=== PATIENT | female | born 1995 | race American Indian/Alaskan Native ===

== ENCOUNTER 2017-01-18 00:27 | Outpatient (CLI) | payer MEDICAID ==
[2017-01-18] MEDS ORDERED: LACTATED RINGERS 500 ML IV ONE (01:19)
[2017-01-18 01:28] LABS: Bilirubin,Urine NEG (Negative); Blood,Urine NEG (Negative); Ketones,Urine NEG (Negative); Leukocyte Esterase,Urine NEG (Negative); Mucus,Urine FEW /HPF; Nitrite,Urine NEG (Negative); Protein,Urine <15 mg/dL mg/dL (Negative); Urobilinogen,Urine < 2.0 mg/dL (<2.0); WBC,Urine < 1.0 /HPF (0.0-6.0)
[2017-01-18 03:37] VITALS: BP 94/53
--- NOTE | 2017-01-18 07:29 | Ultrasound Report ---
BIOPHYSICAL PROFILE (TWINS): INDICATION: No movements per patient. COMPARISON: None similar. TECHNIQUE: Transabdominal ultrasound with Doppler interrogation. BABY A: 2 - breathing movements 2 - movements 2 - posture and tone 2 - Qualitative amniotic fluid volume 8 - TOTAL SCORE OF POSSIBLE 8 Heart Rate (bpm) 148 BABY B: 2 - breathing movements 2 - movements 2 - posture and tone 2 - Qualitative amniotic fluid volume 8 - TOTAL SCORE OF POSSIBLE 8 Heart Rate (bpm) 159
--- NOTE | 2017-01-18 15:34 | Ultrasound Report ---
OB ULTRASOUND GREATER THAN 14 WEEKS - TWINS INDICATION: Decreased movement. Twin gestation. COMPARISON: None similar. TECHNIQUE: Transabdominal grayscale ultrasound with Doppler interrogation. BABY A: Gestation: Twin A Position: Breech Amniotic Fluid: Twin - Largest vertical pocket 5 cm (2-8 cm Normal) Placenta: Posterior fundal Placental Grade: 0 Heart Rate: 144 BPM Cervical length: 4.8 cm (Normal > 3 cm) NEUROANATOMY VISUALIZED: Choroid Plexus Cisterna Magnum Cerebellum Lateral Ventricle ANATOMY VISUALIZED: Stomach Kidneys Bladder Diaphragm 4 Chamber Heart; a 2.3 mm intracardiac echogenic focus noted in possibly the left ventricle, image 10. Heart 3 Vessel Cord Abd. Cord Insert SPINE VISUALIZED: Limited spine due to position The following are not demonstrated due to maternal body habitus or lie: Spine. BPD: 6.28 cm = 25 w 3 d HC: 23.67 cm = 25 w 5 d AC: 21.28 cm = w 25 6 d FL: 4.67 cm = 25 w 4 d HC/AC Ratio: 1.11 Cephalic Index: 78.7 Estimated Weight: 839 grams LMP: 07/18/2016 Clinical age = 26 w 2 d EDC: 04/24/2017 US Gest. Age = 25 w 5 d EDC: 04/28/2017 BABY B: Gestation: Twin B Position: Transverse - head to maternal right Amniotic Fluid: Twin - Largest vertical pocket 3.3 cm (2-8 cm Normal) Placenta: Anterior fundal Placental Grade: 0 Heart Rate: 159 BPM Cervical length: 4.8 cm (Normal > 3 cm) NEUROANATOMY VISUALIZED: Choroid Plexus Cisterna Magnum Cerebellum Lateral Ventricle ANATOMY VISUALIZED: Stomach Kidneys Bladder Diaphragm 4 Chamber Heart Heart 3 Vessel Cord SPINE VISUALIZED: Limited spine due to position The following are not demonstrated due to maternal body habitus or lie: Abd. Cord Insert, spine BPD: 6.07 cm = 24 w 5 d HC: 22.53 cm = 24 w 4 d AC: 22.18 cm = 26 w 4 d FL: 4.66 cm = 25 w 4 d HC/AC Ratio: 1.02 Cephalic Index: 78.2 Estimated Weight: 867 grams LMP: 07/18/2016 Clinical age = 26 w 2 d EDC: 04/24/2017 US Gest. Age = 25 w 5 d EDC: 04/28/2017 CONCLUSION: Twin, viable intrauterine gestations with details, as above. An echogenic intracardiac focus noted in twin A , as described. Please correlate clinically and follow up on subsequent exams, as warranted. Thank you for the opportunity to participate in this patient's care.
== END 2017-01-18 03:50 | disposition home or self-care (01) ==
LOC: TRG 00:27
PROVIDERS: ATTEND Obstetrics & Gynecology
DX: O36.8120 Decreased fetal movements, second trimester, not applicable or unspecified (principal); O30.002 Twin pregnancy, unspecified number of placenta and unspecified number of amniotic sacs, second trimester; O32.1XX1 Maternal care for breech presentation, fetus 1; O32.2XX2 Maternal care for transverse and oblique lie, fetus 2; Z3A.25 25 weeks gestation of pregnancy
CPT/HCPCS: 76805; 76810; 76819; 81001

== ENCOUNTER 2017-03-07 02:08 | Outpatient (CLI) | payer MEDICAID ==
[2017-03-07] MEDS ORDERED: LACTATED RINGERS 500 ML IV ONE (02:17)
[2017-03-07 02:36] VITALS: BP 105/52
[2017-03-07] MEDS ORDERED: LACTATED RINGERS 1,000 ML ONE ×2 (02:42→04:53)
[2017-03-07 03:56] LABS: Urine Drugs of Abuse Note Disclamer
[2017-03-07 04:35] LABS: Bilirubin,Urine NEG (Negative); Blood,Urine NEG (Negative); Ketones,Urine NEG (Negative); Leukocyte Esterase,Urine SM (Negative); Mucus,Urine FEW /HPF; Nitrite,Urine NEG (Negative); Protein,Urine <15 mg/dL mg/dL (Negative)
[2017-03-07] MEDS ORDERED: BRETHINE IVP PRN (05:18)
[2017-03-07] MEDS ORDERED: REGLAN IV ONE (05:18)
[2017-03-07] MEDS ORDERED: BRETHINE SUB-Q PRN (05:18)
[2017-03-07] MEDS ORDERED: XYLOCAINE 2% INFILTRATI ONE (05:18)
[2017-03-07] MEDS ORDERED: PEPCID IV ONE (05:18)
[2017-03-07] MEDS ORDERED: BICITRA PO ONE (05:18)
[2017-03-07] MEDS ORDERED: MINERAL OIL PO PRN (05:18)
[2017-03-07] MEDS ORDERED: ePHEDrine SULFATE IV PRN (05:18)
--- NOTE | 2017-03-07 05:27 | History and Physical Report ---
History of Present Illness Date of examination: 03/07/17 (pt arrived to Triage via EMS c/o ctx with twin gestation) Chief complaint: "I took castor oil all day and did nipple stim. I want these babies out." History of present illness: Medical hx: asthma Surgical HX: 2 TAB Denies smoking, drinking, drug use Pt gives hx of being in [facility] 3 weeks ago Where she received steriods and was told both babies were breech EDC 04-24-17 Term babies with no complications Past History - Obstetrical History Expected Date of Delivery: 04/24/17 Actual Gestation: 33 Week(s) 1 Day(s) : 6 Para: 3 Hx # Term Pregnancies: 3 Induced : 2 Number of Living Children: 3 Medications and Allergies Allergies Allergy/AdvReac Type Severity Reaction Status Date / Time No Known Allergies Allergy Unverified 10/17/15 17:06 Home Medications Medication Instructions Recorded Confirmed Last Taken Type Clindamycin [Clindamycin CAP] 300 mg PO Q8H #30 cap 10/17/15 Unknown Rx Ibuprofen [Motrin 600 MG tab] 600 mg PO Q8H PRN #60 tablet 10/17/15 Unknown Rx traMADol [Ultram 50 MG tab] 50 mg PO Q6HR PRN #14 tablet 10/17/15 Unknown Rx Active Meds: Active Medications Citric Acid/Sodium Citrate (Bicitra) 30 ml PO ONCE ONE Stop: 03/07/17 05:19 Ephedrine Sulfate (Ephedrine Sulfate) 10 mg IV Q2M PRN PRN Reason: Hypotension Stop: 03/07/17 05:23 Famotidine (Pepcid) 20 mg IV ONCE ONE Stop: 03/07/17 05:19 Cefazolin Sodium 2 gm/ Sodium (Chloride) 100 mls @ 200 mls/hr IV ONCE ONE PRN Reason: Protocol Stop: 03/07/17 05:47 Lactated Ringer's (Lactated Ringers) 1,000 mls @ 125 mls/hr IV DIRECT [place] Lactated Ringer's (Lactated Ringers) 1,000 mls @ 2,250 mls/hr IV PREOP [place] Stop: 03/08/17 06:27 Oxytocin/Sodium Chloride (Pitocin/Ns 20 Unit/1000ml Drip) 20 units in 1,000 mls @ 125 mls/hr IV DIRECT [place] Oxytocin/Sodium Chloride (Pitocin/Ns 20 Unit/1000ml Drip) 20 units in 1,000 mls @ 0 mls/hr IV TITR [place] PRN Reason: As Directed Lidocaine (Xylocaine 2%) 20 ml INFILTRATI ONCE ONE Stop: 03/07/17 05:19 Metoclopramide HCl (Reglan) 10 mg IV ONCE ONE Stop: 03/07/17 05:19 Mineral Oil (Mineral Oil) 30 ml PO QHS PRN PRN Reason: Constipation - Vital Signs Vital signs: Vital Signs Pulse BP Pulse Ox 120 H 105/52 96 03/07/17 02:33 03/07/17 02:33 03/07/17 02:33 Temp Pulse Resp BP Pulse Ox 98.8 F 114 H 18 105/52 94 03/07/17 03:08 03/07/17 04:50 03/07/17 03:08 03/07/17 03:08 03/07/17 04:50 - Physical Exam Breasts: Positive: deferred Cardiovascular: Regular rate, Normal S1, Normal S2 Lungs: Positive: Normal air movement Abdomen: Positive: normal appearance, soft, normal bowel sounds. Negative: distention, tenderness Genitourinary (Female): Positive: normal external genitalia Vulva: both: normal Vagina: Positive: normal moisture. Negative: discharge Cervix: Negative: lesion, discharge Uterus: Positive: normal size, normal contour Adnexa: both: normal Anus/Rectum: Positive: normal perianal skin, heme negative. Negative: rectal mass, hemorrhoids Extremities: Deep Tendon Reflex Grade: Normal +2 - Obstetrical FHR: category 1 Uterine Contraction Monitor Mode: External Cervical Dilatation: 4 ( hand palpated) Cervical Effacement Percentage: 60 station: -4 Uterine Contraction Pattern: Irregular Uterine Tone Measurement Phase: Resting Uterine Contraction Intensity: Mild Results Abnormal lab results 03/07/17 Range/Units Unknown Urine WBC (Auto) 20.0 H (0.0-6.0) /HPF All other labs normal. Assessment and Plan notified of pt arrival and status. She is enroute Will plan section All labs drawn NICU notified orders in EMR
[2017-03-07] MEDS ORDERED: LACTATED RINGERS 1,000 ML IV SCH ×2 (06:00)
[2017-03-07] MEDS ORDERED: PITOCin/NS 20 UNIT/1000ML DRIP 20 UNITS/1,000 ML BAG IV SCH ×2 (06:00)
[2017-03-07] MEDS ORDERED: ceFAZolin 2 GM in NACL 0.9% 100 ML IV ONE (06:00)
--- NOTE | 2017-03-07 06:05 | Event Note ---
Date: 03/07/17 Arrived to [facility] to evaluate patient who was sitting on a bedpan with her RN at the bedside. I introduced myself then attempted to obtain a history and perform a physical exam. She refused to give a history or allow an exam. She refused treatment and stated she wanted to go home. With patient's RN and screen examiner present to witness discussion, I made direct eye contact with the her and she was informed she and the babies require care immediately and if she leaves against medical advice she and her babies could or become brain damaged or acquire injuries if care is not obtained. She voiced understanding and signed AMA paper and left in the care of a male who came to pick her up.
--- NOTE | 2017-03-08 08:19 | Ultrasound Report ---
ULTRASOUND OB FOLLOWUP ULTRASOUND OB FOLLOWUP AT GESTATION HISTORY: Twin gestation, evaluate position. TECHNIQUE: Transabdominal ultrasound. Gestation: Twin A Position: Breech Amniotic Fluid: Normal. 5.1 cm largest vertical pocket Placenta: Posterior Placental Grade: 1 Heart Rate: 143 BPM BPD: 7.9 cm = 31 w 4 d HC: 28.8 cm = 31 w 5 d AC: 28.4 cm = 32 w 2 d FL: 6.0 cm = 31 w 1 d HC/AC Ratio: 1.02 Estimated Weight: 1857 grams LMP: Uncertain Clinical age = w d EDC: US Gest. Age = 31 w 4 d EDC: 05/05/17 Gestation: Twin B Position: Cephalic Amniotic Fluid: Normal. 3.3 cm largest vertical pocket. Placenta: Posterior Placental Grade: 1 Heart Rate: 158 BPM Cervical length: 3.3 cm (Normal > 3 cm) BPD: 7.6 cm = 30 w 4 d HC: 28.8 cm = 31 w 4 d AC: 27.5 cm = 31 w 3 d FL: 6.1 cm = 31 w 5 d HC/AC Ratio: 1.05 Estimated Weight: 1776 grams LMP: Uncertain Clinical age = w d EDC: US Gest. Age = 31 w 2 d EDC: 05/07/17
== END 2017-03-07 06:00 | disposition left against medical advice (07) ==
LOC: TRG 02:08 → LD 02:19 → TRG 06:00
PROVIDERS: ATTEND Obstetrics & Gynecology
DX: O30.003 Twin pregnancy, unspecified number of placenta and unspecified number of amniotic sacs, third trimester (principal); O32.1XX1 Maternal care for breech presentation, fetus 1; O26.893 Other specified pregnancy related conditions, third trimester; R10.9 Unspecified abdominal pain; Z3A.33 33 weeks gestation of pregnancy
CPT/HCPCS: 59025; 76816; 80307; 81001; 96360; 96361; J0690; J7120

== ENCOUNTER 2017-07-21 21:37 | Emergency (ER) | payer MEDICAID ==
[2017-07-21 23:17] VITALS: BP 99/49
[2017-07-21 23:53] LABS: Basophils % (Auto) 0.9 % (0.0-1.8); Eosinophils % (Auto) 6.2 % (0.0-4.3); Hematocrit 35.6 % (30.3-42.9); Hemoglobin 11.9 gm/dl (10.1-14.3); Mean Corpuscular HGB Conc 34 % (30-34); Mean Corpuscular Hemoglobin 27 pg (28-32); Mean Corpuscular Volume 80 fl (79-97); Red Blood Count 4.43 M/mm3 (3.65-5.03); Red Cell Distribution Width 15.1 % (13.2-15.2); White Blood Count 5.2 K/mm3 (4.5-11.0)
[2017-07-21 23:55] LABS: Platelet Count 199 K/mm3 (140-440)
[2017-07-22 00:15] LABS: Alanine Aminotransferase 24 units/L (7-56); Albumin 4.5 g/dL (3.9-5); Albumin/Globulin Ratio 1.2 %; Alkaline Phosphatase 52 units/L (35-129); Anion Gap 18 mmol/L; BUN/Creatinine Ratio 12; Blood Urea Nitrogen 6 mg/dL (7-17); Calcium 9.3 mg/dL (8.4-10.2); Carbon Dioxide 25 mmol/L (22-30); Glucose 92 mg/dL (65-100); Lipase 22 units/L (13-60); Potassium 3.8 mmol/L (3.6-5.0); Sodium 139 mmol/L (137-145); Total Protein 8.3 g/dL (6.3-8.2)
[2017-07-22 00:19] LABS: Urine Drugs of Abuse Note Disclamer
[2017-07-22 00:39] LABS: Bilirubin,Urine NEG (Negative); Blood,Urine LG (Negative); Ketones,Urine NEG (Negative); Leukocyte Esterase,Urine NEG (Negative); Mucus,Urine 3+ /HPF; Nitrite,Urine NEG (Negative)
[2017-07-22 00:42] LABS: RBC,Urine > 182.0 /HPF (0.0-6.0)
--- NOTE | 2017-07-22 03:45 | Ultrasound Report ---
FINAL REPORT EXAM: US OB \T\lt; = 14 WEEKS FETUS HISTORY: Abd pain, vag bleed and hematuria. Positive HCG test. Patient passed a large clot with lots of blood following the clot just prior to the ultrasound exam. . LMP 05/06/2017 with estimated age 11 weeks 0 days and EDC 02/10/2018 TECHNIQUE: Ultrasound of the pelvis using transabdominal and transvaginal imaging PRIORS: None. FINDINGS: Uterus: Uterus is elongated in size and normal and homogeneous in echogenicity without focal fibroid formation. The uterus measures 9.4 x 5.8 x 6.1 cm in size. Within the cervix, there is a hypoechoic avascular rounded focus measuring 1.1 x 1.3 x 1.3 cm, probably a complex nabothian cyst containing internal debris. Endometrial stripe: Abnormal in thickness measuring 21.1 mm. The endometrium is also heterogeneous and complex. No gestational sac is identified within the endometrial canal. Ovaries: Both ovaries appear normal in size and echogenicity with normal blood flow bilaterally. The right ovary measures 3.0 x 2.1 x 2.2 cm and the left ovary measures 3.1 x 2.4 x 2.3 cm in size. There is a hypoechoic the avascular focus in the left ovary measuring 1.9 cm. This probably represents a complex cyst Other: There is no evidence for solid adnexal mass or free fluid in the cul-de-sac seen. IMPRESSION: 1. No evidence for intrauterine gestation identified. No definite evidence for extra uterine identified. 2. Endometrial stripe is abnormally thickened and heterogeneous. 3. Complex nabothian cyst in the cervix. 4. Probable complex cyst in the left ovary.
== END 2017-07-21 23:08 | disposition left against medical advice (07) ==
LOC: ED 21:37
DX: N93.9 Abnormal uterine and vaginal bleeding, unspecified (principal); Z53.21 Procedure and treatment not carried out due to patient leaving prior to being seen by health care provider
CPT/HCPCS: 36415; 76801; 76817; 80053; 80307; 81001; 83690; 84702; 84703; 85025; 86850; 86900; 86901; G0480; 80048; 80320

== ENCOUNTER 2017-07-22 02:48 | Emergency (ER) | payer MEDICAID ==
[2017-07-22 03:35] VITALS: BP 105/47
== END 2017-07-22 04:43 | disposition left against medical advice (07) ==
LOC: ED 02:48
DX: N93.9 Abnormal uterine and vaginal bleeding, unspecified (principal); Z53.21 Procedure and treatment not carried out due to patient leaving prior to being seen by health care provider

== ENCOUNTER 2018-07-26 16:18 | Outpatient (CLI) | payer MEDICAID ==
--- NOTE | 2018-07-26 18:56 | Ultrasound Report ---
FINAL REPORT EXAM: US OB > = 14 WEEKS FETUS HISTORY: no care TECHNIQUE: Ultrasound evaluation of the gravid uterus PRIORS: None. FINDINGS: There is a single viable intrauterine with documented cardiac activity. Multiple ultrasound measurements are made to determine a composite gestational age. There is no evidence of placenta previa or abruption. The maternal cervix is closed. The quantity of visualized amniotic fluid appears grossly normal. No sonographic abnormality in the visualized portion of the anatomy. Spine and four-chamber heart not visualized. Heart rate: 156 beats per minute position: Breech Placental position: Posterior, grade 1 Maternal cervix length: 3.7cm Estimated weight: 497 g Ultrasound estimated gestational age: 22 weeks 2 days Ultrasound estimated delivery date: 11/27/2018 LMP unknown IMPRESSION: Single viable intrauterine with the above parameters
[2018-07-26] MEDS ORDERED: PERCOCET 5/325 PO ONE (19:11)
[2018-07-26 19:53] VITALS: BP 105/59
[2018-07-26 20:25] LABS: Bacteria,Urine 1+ /HPF (Negative); Bilirubin,Urine NEG (Negative); Blood,Urine NEG (Negative); Color,Urine Yellow (Yellow); Protein,Urine <15 mg/dL mg/dL (Negative); Urobilinogen,Urine < 2.0 mg/dL (<2.0)
== END 2018-07-26 20:45 | disposition home or self-care (01) ==
LOC: TRG 16:18
PROVIDERS: ATTEND Obstetrics & Gynecology
DX: O47.02 False labor before 37 completed weeks of gestation, second trimester (principal); Z3A.22 22 weeks gestation of pregnancy
CPT/HCPCS: 59025; 76805; 81001